=== PATIENT | female | born 1960 | race Hispanic/Latino ===

== ENCOUNTER 2023-10-07 09:10 | Emergency (ER) | payer OTHER, SELFPAY ==
[2023-10-07] MEDS ORDERED: Ketorolac Tromethamine 30 MG/ML VIAL ONE (09:31)
== END 2023-10-07 10:08 | disposition home or self-care (01) ==
LOC: ERS 09:10
DX: S20.20XA Contusion of thorax, unspecified, initial encounter (principal); E11.9 Type 2 diabetes mellitus without complications; Z79.84 Long term (current) use of oral hypoglycemic drugs; V49.9XXA Car occupant (driver) (passenger) injured in unspecified traffic accident, initial encounter
CPT/HCPCS: 71045; 93005; 96372; J1885